=== PATIENT | female | born 1995 | race Caucasian/White ===

== ENCOUNTER 2016-12-10 11:02 | Emergency (ER) | payer OTHER ==
[~2016-12-10] VITALS: Ht 170.2 cm; Wt 89.0 kg
[~2016-12-10 11:02] MED LIST: ACET325T33 PO; ALPR0.5T PO; ONDA4TAB8 PO
[2016-12-10 11:06] VITALS: Ht 170.2 cm; Wt 89.0 kg
[2016-12-10] MEDS ORDERED: IBUP-1542 PO (12:17)
--- NOTE | 2016-12-10 12:27 | ERD ---
ER Documentation Chief Complaint Date/Time DATE: 12/10/16 TIME: 12:24 Chief Complaint concern having stroke, has slight eye disconfort HPI Patient is a 21-year-old female who presents with a left-sided headache behind her left eyelid she has had on and off for 2-3 weeks. She states occasionally she'll get blurry vision but denies any at this time. 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 She admits to intermittent nausea. Pain and attends is not taking any medications. Denies any fever. ROS All systems reviewed and are negative except as per history of present illness. Medications Home Meds Active Scripts Ibuprofen* (Motrin*) 600 Mg Tab, 600 MG PO Q6H Y for PAIN AND OR ELEVATED TEMP, #30 TAB Prov:SAMUEL ANTHONY PA-C 12/10/16 Alprazolam* (Xanax*) 0.5 Mg Tab, 0.5 MG PO Q8H Y for ANXIETY, #10 TAB Prov:TAMICA EDWARDS PA-C 02/16/16 Acetaminophen* (Tylenol*) 325 Mg Tablet, 2 TAB PO Q8 Y for PAIN AND OR ELEVATED TEMP, #20 TAB Prov:TAMICA EDWARDS PA-C 02/16/16 Ondansetron Hcl* (Zofran*) 4 Mg Tablet, 4 MG PO Q6H for NAUSEA AND/OR VOMITING, #30 TAB Prov:TAMICA EDWARDS PA-C 02/16/16 Allergies Allergies: Coded Allergies: No Known Allergy (Unverified , 09/16/12) PMhx/Soc History of Surgery: No Anesthesia Reaction: No Hx Neurological Disorder: No Hx Respiratory Disorders: No Hx Cardiac Disorders: No Hx Psychiatric Problems: No Hx Miscellaneous Medical Probl: No Hx Alcohol Use: No Hx Substance Use: No Hx Tobacco Use: No Physical Exam Vitals Vital Signs Date Time Temp Pulse Resp B/P Pulse Ox O2 Delivery O2 Flow Rate FiO2 12/10/16 11:06 98.1 94 20 132/77 99 Physical Exam General: well developed, well nourished, alert, nontoxic, no distress Head: normocephalic, atraumatic Eyes: PERRL, normal conjunctiva, extraocular movements intact, visual acuity within normal limits Neck: Supple, nontender, no lymphadenopathy, no midline tenderness Oropharynx: no tonsilar erythema or edema, uvula midline, no exudates, no kissing tonsils, no drooling Respiratory: Clear to auscaultation bilaterally, speaks in full sentences, no use of accesory muscles or labored breathing, no rales, ronchi, or wheezing Cardiovascular: RRR, No murmurs Neuro: CN 2-12 intact, normal speech, 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 This is been for several weeks. Her vital signs are within normal limits and her examination and neurological examination are normal. Visual acuity is also within normal limits. Patient used or glasses lost her glasses and has not followed up with optometry since. 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 Low suspicion for any acute emergent intracranial abnormality for her symptoms.Recommended this patient follow up with her primary care doctor within 48 hours or return to the emergency room for any worsening of symptoms. However this time I do believe there is suitable for outpatient management. I answered all their questions and they agreed with the plan and were discharged home. Departure Diagnosis: Primary Impression: Headache Condition: Stable Patient Instructions: Self-Care for Headaches Additional Instructions: Llame al doctor PRASAD y domo fredrick HENRIK PARA DENTRO DE 1-2 WARNER.Dgale a la secretaria que nosotros le instruimos hacer esta henrik.Avise o llame si garcia condicin se empeora antes de la henrik. Regresa aqui si peor o no mejor. SAMUEL ANTHONY PA-C Dec 10, 2016 12:26
== END 2016-12-10 21:43 | disposition home or self-care (01) ==
LOC: FTE 11:02
DX: R51 Headache (principal)
CPT/HCPCS: 99283

== ENCOUNTER 2017-08-17 03:35 | Emergency (ER) | payer OTHER ==
[~2017-08-17] VITALS: Ht 165.1 cm; Wt 88.0 kg
[~2017-08-17 03:35] MED LIST changes: +IBUP-1542 PO
[2017-08-17 03:41] VITALS: Ht 165.1 cm; Wt 88.0 kg
--- NOTE | 2017-08-17 04:13 | ERD ---
ER Documentation Chief Complaint Date/Time DATE: 08/17/17 TIME: 04:11 Chief Complaint vag bleed since this morning, sudden onset. 12 weeks preg HPI 22-year-old female presents here in emergency department for complete of vaginal bleeding that started this morning. Patient discussed the bleeding is spotting. Patient denies any abdominal pain. Patient is approximately 12 weeks . 1 para 0 0. LMP 04/17/2017, estimated date of confinement 02/27/2017. Patient denies any hematuria or dysuria. Patient is currently being treated for urinary tract infection. ROS All systems reviewed and are negative except as per history of present illness. Medications Home Meds Active Scripts Ibuprofen* (Motrin*) 600 Mg Tab, 600 MG PO Q6H Y for PAIN AND OR ELEVATED TEMP, #30 TAB Prov:SAMUEL ANTHONY PA-C 12/10/16 Alprazolam* (Xanax*) 0.5 Mg Tab, 0.5 MG PO Q8H Y for ANXIETY, #10 TAB Prov:TAMICA EDWARDS PA-C 02/16/16 Acetaminophen* (Tylenol*) 325 Mg Tablet, 2 TAB PO Q8 Y for PAIN AND OR ELEVATED TEMP, #20 TAB Prov:TAMICA EDWARDS PA-C 02/16/16 Ondansetron Hcl* (Zofran*) 4 Mg Tablet, 4 MG PO Q6H for NAUSEA AND/OR VOMITING, #30 TAB Prov:TAMICA EDWARDS PA-C 02/16/16 Allergies Allergies: Coded Allergies: No Known Allergy (Unverified , 08/17/17) PMhx/Soc Medical and Surgical Hx: pt denies Medical Hx, pt denies Surgical Hx History of Surgery: No (DENIES MEDICAL AND SURGICAL HX.) Anesthesia Reaction: No Hx Neurological Disorder: No Hx Respiratory Disorders: No Hx Cardiac Disorders: No Hx Psychiatric Problems: No Hx Miscellaneous Medical Probl: No Hx Alcohol Use: No Hx Substance Use: No Hx Tobacco Use: No Smoking Status: Never smoker FmHx Family History: No coronary disease, No diabetes, No other Physical Exam Vitals Vital Signs Date Time Temp Pulse Resp B/P Pulse Ox O2 Delivery O2 Flow Rate FiO2 08/17/17 03:41 98.2 92 18 154/92 100 Physical Exam GENERAL: The patient is well developed and appropriate for usual state of health, in no apparent distress. CHEST: Clear to auscultation bilaterally. There are no rales, wheezes or rhonchi. HEART: Regular rate and rhythm. No murmurs, clicks, rubs or gallops. No S3 or S4. ABDOMEN: Soft, nontender and nondistended. Good bowel sounds. No rebound or guarding. No gross peritonitis. No gross organomegaly or masses. No Peña sign or McBurney point tenderness. BACK: No midline or flank tenderness. EXTREMITIES: Equal pulses bilaterally. There is no peripheral clubbing, cyanosis or edema. No focal swelling or erythema. Full range of motion. Grossly neurovascularly intact. NEURO: Alert and oriented. Cranial nerves 2-12 intact. Motor strength in all 4 extremities with 5/5 strength. Sensation grossly intact. Normal speech and gait. SKIN: There is no apparent rash or petechia. The skin is warm and dry. HEMATOLOGIC AND LYMPHATIC: There is no evidence of excessive bruising or lymphedema. No gross cervical, axillary, or inguinal lymphadenopathy. VAGINAL: mall amount of blood in the vaginal vault, cervical os is closed. no cervical motion tenderness or adnexal tenderness noted. Result Diagram: 08/17/17 0406 Results 24 hrs Laboratory Tests Test 08/17/17 04:06 08/17/17 04:10 White Blood Count 13.610^3/ul Red Blood Count 3.9310^6/ul Hemoglobin 12.6g/dl Hematocrit 36.6% Mean Corpuscular Volume 93.1fl Mean Corpuscular Hemoglobin 32.1pg Mean Corpuscular Hemoglobin Concent 34.4g/dl Red Cell Distribution Width 12.4% Platelet Count 82115^3/UL Mean Platelet Volume 9.6fl Neutrophils % 67.9% Lymphocytes % 25.6% Monocytes % 5.0% Eosinophils % 0.7% Basophils % 0.2% Nucleated Red Blood Cells % 0.0/100WBC Neutrophils # 9.310^3/ul Lymphocytes # 3.510^3/ul Monocytes # 0.710^3/ul Eosinophils # 0.110^3/ul Basophils # 0.010^3/ul Nucleated Red Blood Cells # 0.010^3/ul Beta HCG, Quantitative 649721.0mIU/ml Urine Color YELLOW Urine Clarity SLIGHTLY CLOUDY Urine pH 5.0 Urine Specific [place] 1.020 Urine Ketones NEGATIVEmg/dL Urine Nitrite NEGATIVEmg/dL Urine Bilirubin NEGATIVEmg/dL Urine Urobilinogen NEGATIVEmg/dL Urine Leukocyte Esterase NEGATIVELeu/ul Urine Microscopic RBC 1/HPF Urine Microscopic WBC 1/HPF Urine Squamous Epithelial Cells FEW/HPF Urine Bacteria FEW/HPF Urine Hemoglobin 3+mg/dL Urine Glucose NEGATIVEmg/dL Urine Total Protein NEGATIVEmg/dl PROCEDURE: Obstetrical ultrasound. CLINICAL INDICATION: Vaginal bleeding. TECHNIQUE: Multiple sonographic images of the pelvis were obtained with transabdominal technique. Images were obtained with alford scale and color Doppler. COMPARISON: No prior studies are available for comparison. FINDINGS: There is an intrauterine gestational sac with a pole identified. heart tones of 146 beats per minute are identified. The crown-rump length averages 6.32 cm, compatible with 12 weeks and 5 days. The mean sac diameter averages 5.66 cm, compatible with 12 weeks and 3 days. A yolk sac is not visualized. No subchorionic collection is identified. There is no pelvic free fluid. Bilateral ovaries are not visualized. There is no suspicious adnexal mass identified. IMPRESSION: Single live intrauterine with an estimated gestational age of 12 weeks and 4 days, with an ultrasound SHY of 02/25/2018. Bilateral ovaries not visualized. 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 Patient does not show any evidence of hypovolemic shock. Patients hemoglobin and hematocrit is stable. There is low suspicion for ectopic . CLAUDIA results show viable 12 wk BetaHCG Quantitative is appropriate for .The patient is Rh+, does not need RhoGAM this time. There is no signs of symptoms of dehydration. There is low suspicion for sepsis. Patient appears well and is hemodynamically stable. Disposition: Home. Condition: Stable Instructions: Patient is advised to do bed rest, avoid heavy lifting, and avoid having sex until cleared by OB doctor. Patient is advised to follow up with OB doctor or here at the ER in 48 hours for reevaluation of symptoms, repeat beta HCG quantitative and ultrasound. Patient is advised that is symptoms are worst, severe bleeding, dizziness, severe abdominal pain, fever, worst signs and symptoms to return to the emergency department immediately. Departure Diagnosis: Primary Impression: Vaginal bleeding in patient at less than 20 weeks gestation Additional Impression: Intrauterine Condition: Stable Patient Instructions: Bleeding During Early KARLY PEOPLES NP Aug 17, 2017 04:13
[2017-08-17 04:30] LABS: ADD UMIC YES; UR ASCORBIC ACID NEGATIVE (NEGATIVE); UR BACTERIA FEW /HPF (NONE SEEN); UR BILIRUBIN (Dip) NEGATIVE (NEGATIVE); UR BLOOD (Dip) 3+ mg/dL (NEGATIVE); UR CLARITY SLIGHTLY CLOUDY (CLEAR); UR COLOR YELLOW (YELLOW); UR GLUCOSE (Dip) NEGATIVE (NEGATIVE); UR KETONES (Dip) NEGATIVE (NEGATIVE); UR LEUKOCYTE ESTERASE (Dip) NEGATIVE Leu/ul (NEGATIVE); UR NITRITE (Dip) NEGATIVE (NEGATIVE); UR RBC 1 /HPF (0-5); UR SQUAMOUS EPITHELIAL CELL FEW /HPF (FEW); UR TOTAL PROTEIN (Dip) NEGATIVE (NEGATIVE); UR UROBILINOGEN (Dip) NEGATIVE (NEGATIVE)
[2017-08-17 04:30] LABS: BASOPHILS % 0.2 % (0.0-2.0); EOSINOPHILS # 0.1 10^3/ul (0.0-0.5); EOSINOPHILS % 0.7 % (0.0-7.0); HEMATOCRIT 36.6 % (37.0-47.0); HEMOGLOBIN 12.6 g/dl (12.0-16.0); LYMPHOCYTES # 3.5 10^3/ul (0.8-2.9); LYMPHOCYTES % 25.6 % (15.0-51.0); MEAN CORPUSCULAR HEMOGLOBIN 32.1 pg (29.0-33.0); MEAN CORPUSCULAR HGB CONC 34.4 g/dl (32.0-37.0); MEAN CORPUSCULAR VOLUME 93.1 fl (82.0-101.0); MEAN PLATELET VOLUME 9.6 fl (7.4-10.4); MONOCYTE # 0.7 10^3/ul (0.3-0.9); NEUTROPHIL # 9.3 10^3/ul (1.6-7.5); NEUTROPHILS % 67.9 % (39.0-77.0); PLATELET COUNT 410 10^3/UL (140-415); RED BLOOD COUNT 3.93 10^6/ul (4.20-5.40); RED CELL DISTRIBUTION WIDTH 12.4 % (11.5-14.5); WHITE BLOOD COUNT 13.6 10^3/ul (4.8-10.8)
--- NOTE | 2017-08-17 04:48 | RADRPT ---
PROCEDURE: Obstetrical ultrasound. CLINICAL INDICATION: Vaginal bleeding. TECHNIQUE: Multiple sonographic images of the pelvis were obtained with transabdominal technique. Images were obtained with alford scale and color Doppler. COMPARISON: No prior studies are available for comparison. FINDINGS: There is an intrauterine gestational sac with a pole identified. heart tones of 146 beat s per minute are identified. The crown-rump length averages 6.32 cm, compatible with 12 weeks and 5 days. The mean sac diameter averages 5.66 cm, compatible with 12 weeks and 3 days. A yolk sac is not visualized. No subchorionic collection is identified. There is no pelvic free fluid. Bilateral ovaries are not visualized. There is no suspicious adnexal mass identified. IMPRESSION: Single live intrauterine with an estimated gestational age of 12 weeks and 4 days, with an ultrasound SHY of 02/25/2018. Bilateral ovaries not visualized. .Dontae Araujo MD, MD Date Time Electronically viewed and signed by .Dontae Araujo MD, on 08/17/2017 04:47 .T/
== END 2017-08-17 05:20 | disposition home or self-care (01) ==
LOC: FTE 03:35
DX: O20.9 Hemorrhage in early pregnancy, unspecified (principal); R10.2 Pelvic and perineal pain; Z3A.12 12 weeks gestation of pregnancy
CPT/HCPCS: 36415; 76801; 81001; 84702; 85025; 86900; 86901; Z7502